=== PATIENT | male | born 1945 | race Caucasian/White ===

== ENCOUNTER 2024-09-11 08:39 | Outpatient (CLI) | payer MEDICARE | END 2024-09-11 08:40 | disposition home or self-care (01) | LOC: CSHULT 08:39 | PROVIDERS: ATTEND Family Medicine | DX: I65.21 Occlusion and stenosis of right carotid artery (principal); R93.89 Abnormal findings on diagnostic imaging of other specified body structures | CPT/HCPCS: 93880 ==

== ENCOUNTER 2025-02-13 14:50 | Outpatient (CLI) | payer MEDICARE | END 2025-02-13 14:51 | disposition home or self-care (01) | LOC: CSHULT 14:50 | PROVIDERS: ATTEND Urology | DX: R33.9 Retention of urine, unspecified (principal); N17.9 Acute kidney failure, unspecified; N28.1 Cyst of kidney, acquired; N32.3 Diverticulum of bladder; R39.198 Other difficulties with micturition | CPT/HCPCS: 76770 ==